=== PATIENT | female | born 1980 | race Caucasian/White ===

== ENCOUNTER 2019-06-27 07:16 | Day surgery (SDC) | payer OTHER ==
[~2019-06-27] VITALS: Ht 167.6 cm; Wt 78.0 kg
[~2019-06-27 07:16] MED LIST: PRENATAL VITAMI1 TA5 PO
[2019-06-27 07:36] VITALS: BP 133/93; PULSE 89; TEMP 98
[2019-06-27] MEDS ORDERED: PROTONIX20 MG PO (07:56)
[2019-06-27 09:05] VITALS: BP 106/80; PULSE 74; TEMP 97.4
--- NOTE | 2019-06-27 09:05 | NUR ---
Patient arrives to [facility] via cart, accompanied by endo TANO Ramires. Bedside report received. Patient is alert. Patient ambulates with steady gait and standby assist to chair in room. Monitoring applied - VSS and WNL on room air. Gag reflex intact. Family at the bedside. Patient denies any pain or nausea. She is offered and receives juice and a muffin to eat. Will continue to monitor.
--- NOTE | 2019-06-27 09:15 | NUR ---
Dr. Chambers at the bedside and talks with patient and her family at this time.
[2019-06-27 09:20] VITALS: BP 123/84; PULSE 76
--- NOTE | 2019-06-27 09:20 | NUR ---
Patient is sitting up in chair, eating and talking with spouse. Denies any pain or nausea. VSS and WNL on room air.
[2019-06-27 09:35] VITALS: BP 113/87; PULSE 75
--- NOTE | 2019-06-27 09:35 | NUR ---
Patient denies pain, nausea, or need. VSS and WNL on room air. Patient states "I'm ready to go home". She has met discharge criteria. Discharge instrutions discussed, denies any questions, and verbalizes understanding. PIV removed with catheter intact and hemostasis achieved. Patient changes to clothing independently.
--- NOTE | 2019-06-27 09:50 | NUR ---
Patient escorted to exit via wheelchair. Discharged to home with ride in private vehicle at 0950.
== END 2019-06-27 09:50 | disposition home or self-care (01) ==
LOC: SDCO 07:16
DX: K29.30 Chronic superficial gastritis without bleeding (principal); K31.7 Polyp of stomach and duodenum; K21.9 Gastro-esophageal reflux disease without esophagitis; R19.7 Diarrhea, unspecified; K59.00 Constipation, unspecified; Z83.79 Family history of other diseases of the digestive system; Z87.891 Personal history of nicotine dependence
CPT/HCPCS: OP; J2250; J2405; J3010; J7030